=== PATIENT | female | born 1960 | race Caucasian/White ===

== ENCOUNTER 2024-05-14 00:12 | Emergency (ER) | payer OTHER ==
[~2024-05-14] VITALS: Ht 170.2 cm; Wt 77.2 kg
[2024-05-14] MEDS: ACETAMINOPHEN 500 MG TAB PO ONE (00:47)
[2024-05-14] MEDS ORDERED: IBUP-1455 PO (02:45)
[2024-05-14] MEDS ORDERED: HYDR-4902 PO (02:45)
[2024-05-14] MEDS: IBUPROFEN 800 MG TAB PO ONE (04:03)
[2024-05-14 04:04] VITALS: BP 150/81; PULSE 64; RESP 18; TEMP 97.7; O2SAT 98
[2024-05-14] MEDS: HYDROcodone-ACET 5/325MG TAB PO ONE (04:14)
== END 2024-05-14 06:00 | disposition home or self-care (01) ==
LOC: EDBD 00:12 → ER 00:12
DX: S92.351A Displaced fracture of fifth metatarsal bone, right foot, initial encounter for closed fracture (principal); S63.591A Other specified sprain of right wrist, initial encounter; S90.31XA Contusion of right foot, initial encounter; S90.01XA Contusion of right ankle, initial encounter; S40.011A Contusion of right shoulder, initial encounter; Z88.2 Allergy status to sulfonamides; Z79.899 Other long term (current) drug therapy; V89.2XXA Person injured in unspecified motor-vehicle accident, traffic, initial encounter; Y93.I9 Activity, other involving external motion; Y92.89 Other specified places as the place of occurrence of the external cause; Y99.8 Other external cause status
CPT/HCPCS: 73030; 73090; 73130; 73610; 73630